=== PATIENT | female | born 1975 | race Two or more races ===

== ENCOUNTER 2020-03-24 08:52 | Emergency (ER) | payer MEDICAID ==
[~2020-03-24] VITALS: Ht 157.5 cm; Wt 54.4 kg
[~2020-03-24 08:52] MED LIST: BENZ200C64 PO; HYDR-4833 PO; LEV500PM IV; METF-372 PO; METR500T PO; OSEL6SUS5 PO; [UNRECOGNIZED DRUG - CODE] PO
[2020-03-24 09:01] VITALS: BP 109/75
[2020-03-24] MEDS ORDERED: KETOROLAC TROMETH 60MG/2ML VIAL IM ONE (10:00)
== END 2020-03-24 11:13 | disposition home or self-care (01) ==
LOC: ER 08:52
DX: S39.012A Strain of muscle, fascia and tendon of lower back, initial encounter (principal); E11.9 Type 2 diabetes mellitus without complications; Z88.6 Allergy status to analgesic agent; X58.XXXA Exposure to other specified factors, initial encounter; Y93.89 Activity, other specified; Y92.89 Other specified places as the place of occurrence of the external cause; Y99.8 Other external cause status
CPT/HCPCS: 76775; 81002; 81025; 96372; 99284; J1885

== ENCOUNTER 2020-09-06 10:18 | Emergency (ER) | payer MEDICAID, OTHER ==
[~2020-09-06] VITALS: Ht 147.3 cm; Wt 54.4 kg
[2020-09-06 10:24] VITALS: BP 124/75
[2020-09-06] MEDS ORDERED: HYDROcodone-ACET 5/325MG TAB PO ONE (11:00)
== END 2020-09-06 11:48 | disposition home or self-care (01) ==
LOC: ER 10:18
DX: S99.911A Unspecified injury of right ankle, initial encounter (principal); E11.9 Type 2 diabetes mellitus without complications; Z87.81 Personal history of (healed) traumatic fracture; Z79.899 Other long term (current) drug therapy; Z88.6 Allergy status to analgesic agent; W22.8XXA Striking against or struck by other objects, initial encounter; Y93.89 Activity, other specified; Y92.89 Other specified places as the place of occurrence of the external cause; Y99.0 Civilian activity done for income or pay

== ENCOUNTER 2021-07-23 10:52 | Emergency (ER) | payer MEDICAID ==
[~2021-07-23] VITALS: Ht 152.4 cm; Wt 49.9 kg
[2021-07-23] MEDS ORDERED: ALBUAER3 IN (13:07)
[2021-07-23] MEDS ORDERED: DOXY-286 PO (13:07)
[2021-07-23] MEDS ORDERED: BENZ100C19 PO (13:07)
[2021-07-23] MEDS ORDERED: PRED10TA PO (13:07)
[2021-07-23 13:19] VITALS: BP 120/81
== END 2021-07-23 13:22 | disposition home or self-care (01) ==
LOC: ER 10:52
DX: U07.1 COVID-19 (principal); J06.9 Acute upper respiratory infection, unspecified; E11.9 Type 2 diabetes mellitus without complications; Z90.49 Acquired absence of other specified parts of digestive tract
CPT/HCPCS: 36415; 71045; 87426

== ENCOUNTER 2022-02-06 16:32 | Emergency (ER) | payer MEDICAID ==
[~2022-02-06] VITALS: Ht 160 cm; Wt 53.9 kg
[~2022-02-06 16:32] MED LIST changes: +ALBUAER3 IN; +BENZ100C19 PO; +DOXY-286 PO; +PRED10TA PO
[2022-02-06 16:56] VITALS: BP 106/78
== END 2022-02-06 20:58 | disposition home or self-care (01) ==
LOC: ER 16:32
DX: B34.9 Viral infection, unspecified (principal); J02.9 Acute pharyngitis, unspecified; M79.10 Myalgia, unspecified site; Z90.49 Acquired absence of other specified parts of digestive tract; Z79.899 Other long term (current) drug therapy; Z88.6 Allergy status to analgesic agent; Z20.822 Contact with and (suspected) exposure to COVID-19
CPT/HCPCS: 36415; 87070; 87880

== ENCOUNTER 2022-09-10 13:52 | Emergency (ER) | payer MEDICAID ==
[~2022-09-10] VITALS: Ht 147.3 cm; Wt 57.0 kg
[2022-09-10 14:25] LABS: Basophils # (auto) 0 10 ^3/uL (0-0.2); Basophils % (auto) 0.2 % (0.0-2.0); Eosinophils # (auto) 0.1 10 ^3/uL (0-0.8); Eosinophils % (auto) 0.5 % (0.0-7.0); Hematocrit 49.4 % (36.0-46.0); Hemoglobin 16.9 g/dL (12.2-16.2); Lymphocytes # (auto) 0.9 10 ^3/uL (0.4-5.4); Lymphocytes % (auto) 6.4 % (10.0-50.0); Mean Corpuscular Hemoglobin 30.1 pg (28.0-32.0); Mean Corpuscular Hgb Conc. 34.2 g/dL (32.0-36.0); Mean Corpuscular Volume 88.2 fL (80.0-100.0); Monocytes # (auto) 0.6 10 ^3/uL (0-1.3); Monocytes % (auto) 4.3 % (0.0-12.0); Neutrophils # (auto) 11.8 10 ^3/uL (1.6-8.6); Neutrophils % (auto) 88.6 % (37.0-80.0); Nucleated Red Blood Cells % 0.1 %; Red Cell Distribution Width 13.1 % (11.8-14.3); White Blood Cell 13.3 10^3/uL (4.4-10.8)
[2022-09-10 15:03] LABS: Albumin 4.2 g/dL (3.4-5.0); BUN/Creatinine Ratio 23.9; Calcium 8.8 mg/dL (8.5-10.1); Potassium 3.8 mmol/L (3.5-5.1); Total Protein 8.4 g/dL (6.4-8.2)
[2022-09-10 16:06] LABS: Urine Bacteria NONE SEEN /hpf (None Seen); Urine Blood Negative /uL (Negative); Urine Specific Gravity 1.037 (1.001-1.035); Urine WBC 6 /hpf (0 - 5)
[2022-09-10] MEDS ORDERED: cefTRIAXone 1GM/50ML D5W 50 ML IV ONE (16:45)
[2022-09-10] MEDS ORDERED: SODIUM CHLORIDE 0.9% 1,000 ML IV ONE ×2 (16:45)
[2022-09-10] MEDS ORDERED: CIP500T PO (19:15)
[2022-09-10] MEDS ORDERED: METR500T14 PO (19:15)
[2022-09-10] MEDS ORDERED: ACET1CAP14 PO (19:15)
[2022-09-10 22:10] VITALS: BP 111/74
[2022-09-10] MEDS ORDERED: HYDROcodone-ACET 10/325MG TAB PO ONE (22:15)
== END 2022-09-10 22:17 | disposition home or self-care (01) ==
LOC: ER 13:52
DX: K57.32 Diverticulitis of large intestine without perforation or abscess without bleeding (principal); E11.65 Type 2 diabetes mellitus with hyperglycemia; Z90.89 Acquired absence of other organs; Z98.890 Other specified postprocedural states; Z98.51 Tubal ligation status; Z88.6 Allergy status to analgesic agent
CPT/HCPCS: 36415; 74176; 80053; 81001; 85025; 96365; 99285; J0696; J7030

== ENCOUNTER 2023-04-12 13:20 | Emergency (ER) | payer MEDICAID ==
[~2023-04-12] VITALS: Ht 142.2 cm; Wt 57.9 kg
[~2023-04-12 13:20] MED LIST changes: +ACET1CAP14 PO; +CIP500T PO; +METR-344 PO
[2023-04-12 14:03] VITALS: BP 102/71; PULSE 94; RESP 18; O2SAT 97
[2023-04-12] MEDS ORDERED: FLUORESCEIN SOD OPTH TEST STRIP OP ONE (15:15)
[2023-04-12] MEDS ORDERED: ACETAMINOPHEN 500 MG TAB PO ONE (16:00)
[2023-04-12] MEDS ORDERED: ACET-1080 PO (16:06)
[2023-04-12 16:07] VITALS: TEMP 97
== END 2023-04-12 16:14 | disposition home or self-care (01) ==
LOC: ER 13:20
DX: R51.9 Headache, unspecified (principal); H57.89 Other specified disorders of eye and adnexa; E11.9 Type 2 diabetes mellitus without complications; Z90.49 Acquired absence of other specified parts of digestive tract; Z98.890 Other specified postprocedural states; Z88.8 Allergy status to other drugs, medicaments and biological substances; Z79.1 Long term (current) use of non-steroidal anti-inflammatories (NSAID); Z79.84 Long term (current) use of oral hypoglycemic drugs; Z79.899 Other long term (current) drug therapy
CPT/HCPCS: 70450

== ENCOUNTER 2023-10-15 13:27 | Emergency (ER) | payer MEDICAID ==
[~2023-10-15] VITALS: Ht 147.3 cm; Wt 60.8 kg
[~2023-10-15 13:27] MED LIST changes: -ACET1CAP14 PO; -ALBUAER3 IN; -BENZ100C19 PO; -BENZ200C64 PO; -CIP500T PO; +DICY10CA PO; -DOXY-286 PO; +GLIP10TA9 PO; -HYDR-4833 PO; -LEV500PM IV; +LEVO500T91 PO; -METR-344 PO; -METR500T PO; -OSEL6SUS5 PO; +PANT1INJ3 IV; -PRED10TA PO; +SEMA2INJ3 SC; -[UNRECOGNIZED DRUG - CODE] PO
[2023-10-15 14:02] VITALS: BP 119/85; PULSE 99; RESP 18; O2SAT 97
[2023-10-15] MEDS ORDERED: CYCL-837 PO (20:00)
[2023-10-15] MEDS ORDERED: ACET500T58 PO (20:00)
[2023-10-15] MEDS: HYDROcodone-ACET 5/325MG TAB PO ONE (22:30)
[2023-10-15] MEDS: ONDANSETRON ODT 4 MG TAB PO ONE (22:31)
== END 2023-10-15 23:02 | disposition home or self-care (01) ==
LOC: ER 13:27
DX: S46.912A Strain of unspecified muscle, fascia and tendon at shoulder and upper arm level, left arm, initial encounter (principal); S40.022A Contusion of left upper arm, initial encounter; S50.02XA Contusion of left elbow, initial encounter; S20.212A Contusion of left front wall of thorax, initial encounter; W18.09XA Striking against other object with subsequent fall, initial encounter; Y93.89 Activity, other specified; Y92.89 Other specified places as the place of occurrence of the external cause; Y99.8 Other external cause status
CPT/HCPCS: 71101; 73030; 73060; 99284; Q0162